=== PATIENT | male | born 1990 | race Caucasian/White ===

== ENCOUNTER 2021-07-06 13:51 | Emergency (ER) | payer OTHER ==
[2021-07-06] MEDS ORDERED: Proparacaine 0.5% Opth 15 ML BOT ONE (15:42)
[2021-07-06] MEDS ORDERED: Nitrazine Tape 1 ROLL ONE (15:43)
[2021-07-06] MEDS ORDERED: Fluorescein Opthalmic Strip ONE ×2 (15:43→15:57)
== END 2021-07-06 17:00 | disposition home or self-care (01) ==
LOC: ERS 13:51
DX: Z77.098 Contact with and (suspected) exposure to other hazardous, chiefly nonmedicinal, chemicals (principal)
CPT/HCPCS: 99283